=== PATIENT | male | born 1990 | race Hispanic/Latino ===

== ENCOUNTER 2024-02-28 20:46 | Emergency (ER) | payer OTHER | END 2024-02-28 21:49 | LOC: CSHERS 20:46 → EEVIPCON 20:46 → CSHERS 21:49 | DX: R07.89 Other chest pain (principal); E03.9 Hypothyroidism, unspecified; Z79.899 Other long term (current) drug therapy; Z95.0 Presence of cardiac pacemaker | CPT/HCPCS: 71045; 93005 ==